=== PATIENT | female | born 1935 | race Caucasian/White ===

== ENCOUNTER 2018-07-12 06:41 | Inpatient (IN) | payer OTHER ==
[~2018-07-12] VITALS: Ht 177.8 cm; Wt 67.5 kg
[2018-07-12] VITALS (36 sets, daily range): BP systolic 72–152; BP diastolic 37–57
[~2018-07-12 06:41] MED LIST: CALCITRATE200 MG; CENTRUM SILVER1 EAC4 PO; COLACE100 MG PO; FLECAINIDE ACET50 M1 PO; KEFLEX500 M1 PO; LOPRESSOR25 PO; SIMVASTATIN10 MG PO; VITAMIN D3400 UNIT; ZOCOR20 MG PO
[2018-07-12 07:21] LABS: ABSOLUTE NEUTROPHILS 5.3 thou/uL (1.4-8.2); BASOPHILS 0.4 % (0.0-2.0); EOSINOPHILS 3.6 % (0.0-3.0); HEMATOCRIT 42.5 % (37.0-47.0); HEMOGLOBIN 14.2 gm/dL (12.0-15.0); LYMPHOCYTES 22.1 % (24.0-44.0); MCH 31.6 pg (26.0-34.0); MCHC 33.4 g/dL (28.0-37.0); MCV 94.6 fL (80.0-100.0); MONOCYTES 7.3 % (1.0-8.0); PLATELET COUNT 226 thou/uL (150-400); POLYS 66.6 % (36.0-66.0); RBC 4.49 mil/uL (4.20-5.00); RDW 13.7 % (10.5-14.5); WBC 7.9 thou/uL (4.0-11.0)
[2018-07-12 07:28] LABS: CALCIUM 9.1 mg/dL (8.5-10.1); CREATININE 1.4 mg/dL (0.6-1.0); POTASSIUM 4.4 mmol/L (3.5-5.1)
[2018-07-12] MEDS ORDERED: SUPER B COMPLE1 EAC2 PO (07:29)
[2018-07-12] MEDS ORDERED: FISH OIL 1,001000 M2 PO (07:29)
[2018-07-12] MEDS ORDERED: PRESERVISION A1 EAC2 PO (07:29)
[2018-07-12 07:33] LABS: APTT 30.3 Seconds (24.5-32.8); PROTIME 10.8 Seconds (9.3-11.4)
[2018-07-12 07:35] LABS: ALBUMIN 3.3 g/dL (3.4-5.0); TOTAL BILIRUBIN 0.7 mg/dL (<0.1-1.0); TOTAL PROTEIN 6.5 g/dL (6.4-8.2)
--- NOTE | 2018-07-12 15:15 | 2DMMODE ---
[address] [address] 2 D/M-MODE ECHOCARDIOGRAM Name: CRISTIANO SOTO Room #: 243-P ADM IN M.R.#: [id number] Admission: 07/12/18 Attend Phys: Osman Freed Discharge: Date of : 37 Date of Service: 07/12/18 1244 Report #: [id number] THIS REPORT FOR: //name// APPROVED REPORT Study performed: 07/12/2018 10:57:52 EXAM: Comprehensive 2D, Doppler, and color-flow Echocardiogram Patient Location: Lab Room #: 1 Status: stat BSA: 1.82 Other Information Study Quality: Limited Indications Pericardial Effusion Left Ventricle The left ventricle is normal size. The left ventricular systolic function is grossly normal. Right Ventricle The right ventricle is normal size. The right ventricular systolic function is normal. Atria The left atrium size is normal. The right atrium size is normal. Pericardium There is a moderate circumferential pericardial effusion. <Conclusion> Limited study. The left ventricle is normal size. The left ventricular systolic function is grossly normal. The right ventricle is normal size. The left atrium size is normal. [address] [address] 2 D/M-MODE ECHOCARDIOGRAM Name: CRISTIANO SOTO Room #: 243-P ADM IN M.R.#: [id number] Admission: 07/12/18 Attend Phys: Osman Freed Discharge: Date of : 37 Date of Service: 07/12/18 1244 Report #: [id number] The right atrium size is normal. There is a moderate circumferential pericardial effusion. <ELECTRONICALLY SIGNED> By: Gonzales Cole MD 07/12/18 1244 1244 43 Gonzales Cole MD /INF
[2018-07-12 15:36] LABS: ABSOLUTE NEUTROPHILS 14.9 thou/uL (1.4-8.2); BASOPHILS 0.1 % (0.0-2.0); EOSINOPHILS 0.4 % (0.0-3.0); HEMATOCRIT 37.2 % (37.0-47.0); HEMOGLOBIN 12.4 gm/dL (12.0-15.0); LYMPHOCYTES 4.5 % (24.0-44.0); MCH 31.5 pg (26.0-34.0); MCHC 33.4 g/dL (28.0-37.0); MCV 94.5 fL (80.0-100.0); MONOCYTES 7.9 % (1.0-8.0); PLATELET COUNT 184 thou/uL (150-400); POLYS 87.1 % (36.0-66.0); RBC 3.94 mil/uL (4.20-5.00); RDW 13.3 % (10.5-14.5); WBC 17.1 thou/uL (4.0-11.0)
[2018-07-13] VITALS (25 sets, daily range): BP systolic 88–145; BP diastolic 36–54
[2018-07-13 04:55] LABS: ABSOLUTE NEUTROPHILS 11.6 thou/uL (1.4-8.2); BASOPHILS 0.2 % (0.0-2.0); EOSINOPHILS 0.1 % (0.0-3.0); HEMATOCRIT 35.8 % (37.0-47.0); HEMOGLOBIN 12.1 gm/dL (12.0-15.0); LYMPHOCYTES 6.8 % (24.0-44.0); MCH 31.9 pg (26.0-34.0); MCHC 33.8 g/dL (28.0-37.0); MCV 94.5 fL (80.0-100.0); MONOCYTES 8.1 % (1.0-8.0); PLATELET COUNT 185 thou/uL (150-400); POLYS 84.8 % (36.0-66.0); RBC 3.79 mil/uL (4.20-5.00); RDW 13.5 % (10.5-14.5); WBC 13.7 thou/uL (4.0-11.0)
[2018-07-13 05:09] LABS: CREATININE 1.2 mg/dL (0.6-1.0); POTASSIUM 4.6 mmol/L (3.5-5.1)
--- NOTE | 2018-07-13 09:13 | EKG ---
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 07/13/1813 5 5 Luís Cotto MD, FACC /EPI
--- NOTE | 2018-07-13 16:10 | O ---
[facility] [place] [address] OPERATIVE REPORT Name: CRISTIANO SOOT Room #: 243-P ADM IN M.R.#: [id number] Admission: 07/12/18 Attend Phys: Osman Freed MD Discharge: Date of : 37 Report #: [id number] THIS REPORT FOR: //name// CC: Nadine Freed DATE OF SERVICE: 07/12/2018 PREOPERATIVE DIAGNOSIS: Pericardial effusion. POSTOPERATIVE DIAGNOSIS: Pericardial effusion. OPERATION: Emergency subxiphoid pericardiotomy. SURGEON: Neto Cervantes MD. ANESTHESIA: General. INDICATIONS: The patient is an 82-year-old who was having a procedure done in the electrophysiology laboratory. I was called emergently because they were concerned that there was a perforation with important pericardial effusion and potential cardiac tamponade. After attempts by Cardiology to place a pericardial drain failed, we asked Anesthesia to institute general anesthesia and then prepped and draped the patient. An incision was made over the xiphoid region. The costal margin was elevated and the anterior wall of the pericardium was cleared. An aperture was made into the anterior pericardium and blood under pressure was liberated. Blood pressure improved dramatically when the blood was drained. Digital exploration revealed no evidence of adhesions and blood. The blood loss was self-limited. Approximately 200 mL of blood was aspirated. A 24 Chuy drain was brought through a separate stab wound and drained in a dependent position. When hemostasis was satisfactory, the wound was closed in layers. The patient tolerated the procedure well and was taken to the Intensive Care Unit in good condition. All counts reported as correct. <ELECTRONICALLY SIGNED> By: Neto Cervantse MD 07/13/18 1610 [id number] Neto Cervantes MD /nt
[2018-07-14] VITALS (21 sets, daily range): BP systolic 100–166; BP diastolic 42–101
[2018-07-14 04:47] LABS: CALCIUM 7.7 mg/dL (8.5-10.1); CREATININE 1.4 mg/dL (0.6-1.0); POTASSIUM 4.8 mmol/L (3.5-5.1)
[2018-07-14 05:10] LABS: ABSOLUTE NEUTROPHILS 9.1 thou/uL (1.4-8.2); BASOPHILS 0.3 % (0.0-2.0); EOSINOPHILS 0.4 % (0.0-3.0); HEMATOCRIT 35.6 % (37.0-47.0); HEMOGLOBIN 11.8 gm/dL (12.0-15.0); LYMPHOCYTES 12.5 % (24.0-44.0); MCH 31.7 pg (26.0-34.0); MCHC 33.2 g/dL (28.0-37.0); MCV 95.4 fL (80.0-100.0); MONOCYTES 9.8 % (1.0-8.0); PLATELET COUNT 169 thou/uL (150-400); RBC 3.73 mil/uL (4.20-5.00); RDW 13.6 % (10.5-14.5); WBC 11.8 thou/uL (4.0-11.0)
[2018-07-15] VITALS (22 sets, daily range): BP systolic 130–172; BP diastolic 60–108
[2018-07-15 05:44] LABS: ABSOLUTE NEUTROPHILS 9.4 thou/uL (1.4-8.2); BASOPHILS 0.4 % (0.0-2.0); EOSINOPHILS 0.5 % (0.0-3.0); HEMATOCRIT 38.1 % (37.0-47.0); HEMOGLOBIN 12.6 gm/dL (12.0-15.0); LYMPHOCYTES 10.4 % (24.0-44.0); MCH 31.5 pg (26.0-34.0); MCHC 33.1 g/dL (28.0-37.0); MCV 95.4 fL (80.0-100.0); MONOCYTES 8.1 % (1.0-8.0); PLATELET COUNT 197 thou/uL (150-400); POLYS 80.6 % (36.0-66.0); RDW 13.8 % (10.5-14.5); WBC 11.7 thou/uL (4.0-11.0)
[2018-07-15 05:56] LABS: CALCIUM 7.7 mg/dL (8.5-10.1); CREATININE 1.1 mg/dL (0.6-1.0); POTASSIUM 4.5 mmol/L (3.5-5.1)
[2018-07-16] VITALS (7 sets, daily range): BP systolic 159–179; BP diastolic 59–78
[2018-07-16 04:08] LABS: ABSOLUTE NEUTROPHILS 9.4 thou/uL (1.4-8.2); BASOPHILS 0.4 % (0.0-2.0); HEMATOCRIT 35.4 % (37.0-47.0); HEMOGLOBIN 11.9 gm/dL (12.0-15.0); LYMPHOCYTES 10.8 % (24.0-44.0); MCHC 33.7 g/dL (28.0-37.0); MCV 94.8 fL (80.0-100.0); MONOCYTES 6.7 % (1.0-8.0); PLATELET COUNT 228 thou/uL (150-400); POLYS 81.1 % (36.0-66.0); RBC 3.74 mil/uL (4.20-5.00); RDW 13.5 % (10.5-14.5); WBC 11.6 thou/uL (4.0-11.0)
[2018-07-16 04:40] LABS: CREATININE 1.1 mg/dL (0.6-1.0); POTASSIUM 4.5 mmol/L (3.5-5.1)
--- NOTE | 2018-07-16 11:28 | 2DMMODE ---
[address] [address] 2 D/M-MODE ECHOCARDIOGRAM Name: BRITTANYCRISTIANO MCDANIELS Room #: 219-P ADM IN M.R.#: [id number] Admission: 07/12/18 Attend Phys: Osman Freed Discharge: Date of : 37 Date of Service: 07/16/18 1127 Report #: [id number] THIS REPORT FOR: //name// APPROVED REPORT Study performed: 07/16/2018 10:22:56 EXAM: Comprehensive 2D, Doppler, and color-flow Echocardiogram Patient Location: Bedside Room #: 219 Status: routine BSA: 1.84 HR: 61 bpm BP: 159/59 mmHg Rhythm: NSR Other Information Study Quality: Good Indications Cardiomyopathy R/O Effusion Left Ventricle The left ventricle is normal size. There is normal LV segmental wall motion. There is normal left ventricular wall thickness. Left ventricular systolic function is at the lower limits of normal LVEF is 45-50%. Right Ventricle The right ventricle is normal size. The right ventricular systolic function is normal. Atria Left atrium is at the upper limits of normal. Right atrium is at the upper limits of normal. Aortic Valve The aortic valve is mildly sclerotic Mitral Valve Mild mitral annular calcification Tricuspid Valve [address] [address] 2 D/M-MODE ECHOCARDIOGRAM Name: CRISTIANO SOTO Room #: 219-P ADM IN M.R.#: [id number] Admission: 07/12/18 Attend Phys: [facility] Discharge: Date of : 37 Date of Service: 07/16/18 1127 Report #: [id number] The tricuspid valve is normal in structure. Pulmonic Valve The pulmonary valve is normal in structure. Great Vessels The aortic root is normal in size. Pericardium There is no pericardial effusion. <Conclusion> Limited and abbreviated echocardiogram Left ventricular systolic function is at the lower limits of normal LVEF is 45-50%. The aortic valve is mildly sclerotic Mild mitral annular calcification There is no pericardial effusion. <ELECTRONICALLY SIGNED> By: Luís Cotto MD, FACC 07/16/187 26 Luís Cotto MD, FACC /INF
[2018-07-17 03:45] VITALS: BP 139/65
[2018-07-17 04:41] LABS: POTASSIUM 4.3 mmol/L (3.5-5.1)
[2018-07-17 04:43] LABS: ABSOLUTE NEUTROPHILS 9.7 thou/uL (1.4-8.2); BASOPHILS 0.3 % (0.0-2.0); EOSINOPHILS 0.6 % (0.0-3.0); HEMATOCRIT 35.5 % (37.0-47.0); HEMOGLOBIN 11.9 gm/dL (12.0-15.0); LYMPHOCYTES 9.4 % (24.0-44.0); MCH 31.6 pg (26.0-34.0); MCHC 33.5 g/dL (28.0-37.0); MCV 94.4 fL (80.0-100.0); MONOCYTES 10.3 % (1.0-8.0); PLATELET COUNT 249 thou/uL (150-400); POLYS 79.4 % (36.0-66.0); RBC 3.76 mil/uL (4.20-5.00); RDW 13.5 % (10.5-14.5); WBC 12.3 thou/uL (4.0-11.0)
--- NOTE | 2018-07-17 08:22 | EKG ---
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 : 1935 Requested By: Xi Hidalgo Order Number: [id number] MD: Luís Cotto Measurements Intervals [place] Rate: 105 P: 0 CT: 101 QRS: -81 QRSD: 146 T: 97 QT: 380 QTc: 503 Interpretive Statements Ventricular pacing No further analysis attempted due to paced rhythm Baseline wander in lead(s) II,III,aVR,aVF Compared to ECG 07/13/2018 08:06:31 Ventricular pacing is now present Electronically Signed On 07-17-2018 8:22:14 PLASMA PROCESSING CENTRIFUGE OPERATOR by Luís Cotto [email or web address] <ELECTRONICALLY SIGNED> By: Luís Cotto MD, [facility] 07/17/18 0822 [id number] Luís Cotto MD, [facility] /EPI
[2018-07-17 08:34] VITALS: BP 140/71
[2018-07-17 12:20] VITALS: BP 115/70
[2018-07-17 13:09] LABS: URINE BILIRUBIN NEGATIVE (Negative); URINE BLOOD TRACE (Negative); URINE CLARITY CLEAR; URINE COLOR YELLOW; URINE GLUCOSE-RANDOM* NEGATIVE (Negative); URINE KETONES 1+ (Negative); URINE LEUKOCYTES-REFLEX NEGATIVE (Negative); URINE NITRITE-REFLEX NEGATIVE (Negative); URINE PROTEIN (DIPSTICK) TRACE (Negative); URINE SPECIFIC GRAVITY >= 1.030 (1.005-1.035); URINE UROBILINOGEN 0.2 E.U./dl (0.2-1.0)
[2018-07-17 19:46] VITALS: BP 121/70
[2018-07-18 04:25] LABS: CALCIUM 8.2 mg/dL (8.5-10.1); CREATININE 1.2 mg/dL (0.6-1.0); POTASSIUM 4.2 mmol/L (3.5-5.1)
[2018-07-18 04:29] VITALS: BP 123/82
[2018-07-18 04:48] LABS: ABSOLUTE NEUTROPHILS 9.9 thou/uL (1.4-8.2); BASOPHILS 0.6 % (0.0-2.0); EOSINOPHILS 0.8 % (0.0-3.0); HEMATOCRIT 38.7 % (37.0-47.0); HEMOGLOBIN 12.7 gm/dL (12.0-15.0); LYMPHOCYTES 10.2 % (24.0-44.0); MCH 31.2 pg (26.0-34.0); MCHC 32.9 g/dL (28.0-37.0); MCV 94.8 fL (80.0-100.0); MONOCYTES 9.6 % (1.0-8.0); PLATELET COUNT 281 thou/uL (150-400); POLYS 78.8 % (36.0-66.0); RBC 4.09 mil/uL (4.20-5.00); RDW 13.4 % (10.5-14.5); WBC 12.5 thou/uL (4.0-11.0)
[2018-07-18 11:50] VITALS: BP 112/60
[2018-07-18 15:57] VITALS: BP 141/93
[2018-07-18 16:00] VITALS: BP 119/82
[2018-07-18 16:30] VITALS: BP 119/82
[2018-07-18 20:01] VITALS: BP 110/57
[2018-07-19 03:23] LABS: CREATININE 1.3 mg/dL (0.6-1.0); POTASSIUM 4.1 mmol/L (3.5-5.1)
[2018-07-19 04:12] LABS: ABSOLUTE NEUTROPHILS 9.4 thou/uL (1.4-8.2); BASOPHILS 0.3 % (0.0-2.0); EOSINOPHILS 2.4 % (0.0-3.0); HEMATOCRIT 37.7 % (37.0-47.0); HEMOGLOBIN 12.6 gm/dL (12.0-15.0); LYMPHOCYTES 11.9 % (24.0-44.0); MCH 31.6 pg (26.0-34.0); MCHC 33.3 g/dL (28.0-37.0); MCV 94.7 fL (80.0-100.0); MONOCYTES 7.8 % (1.0-8.0); PLATELET COUNT 297 thou/uL (150-400); POLYS 77.6 % (36.0-66.0); RBC 3.99 mil/uL (4.20-5.00); RDW 13.6 % (10.5-14.5); WBC 12.1 thou/uL (4.0-11.0)
[2018-07-19 04:51] VITALS: BP 137/71
[2018-07-19 08:23] VITALS: BP 123/62
[2018-07-19 12:00] VITALS: BP 117/60
[2018-07-19 13:25] VITALS: BP 119/82
[2018-07-19 16:00] VITALS: BP 122/56
[2018-07-19 19:34] VITALS: BP 130/64
[2018-07-20 04:57] VITALS: BP 150/82
[2018-07-20 08:13] VITALS: BP 149/68
--- NOTE | 2018-07-20 11:59 | 2DMMODE ---
[facility] [address] [place] [address] 2 D/M-MODE ECHOCARDIOGRAM Name: SOTOCRISTIANO ENEDELIA Room #: 219-P ADM IN M.R.#: [id number] Admission: 07/12/18 Attend Phys: Osman Freed Discharge: Date of : 37 Date of Service: 07/20/18 1159 Report #: [id number] THIS REPORT FOR: //name// APPROVED REPORT Study performed: 07/20/2018 10:39:53 EXAM: Comprehensive 2D, Doppler, and color-flow Echocardiogram Patient Location: Bedside Room #: 219 Status: routine BSA: 1.84 HR: 86 bpm BP: 149/68 mmHg Rhythm: Atrial Fibrillation Other Information Study Quality: Good Indications Atrial Fibrillation R/O Effusion 2D Dimensions LV Single Plane 4CH: 41.74 % LV Single Plane 2CH: 43.88 % Biplane EF: 41.6 % Volumes Left Atrial Volume (Systole) Single Plane 4CH: 84.05 mL Single Plane 2CH: 80.30 mL LA ESV Index: 49.00 mL/m2 Left Ventricle The left ventricle is normal size. Borderline concentric left ventricular hypertrophy. Left ventricular systolic function is mildly decreased. LVEF is 40-45%. Atria Left atrium is moderately dilated. Right atrium is mildly to moderately dilated. Aortic Valve The Aortic valve is sclerotic. Mitral Valve There is mitral annular calcification. [facility] [address] [place] [address] 2 D/M-MODE ECHOCARDIOGRAM Name: CRISTIANO SOTO Room #: 219-P ADM IN M.R.#: [id number] Admission: 07/12/18 Attend Phys: Osman Freed Discharge: Date of : 37 Date of Service: 07/20/18 1159 Report #: [id number] Tricuspid Valve The tricuspid valve is normal in structure. Pericardium There is no pericardial effusion. <Conclusion> The left ventricle is normal size. Left ventricular systolic function is mildly decreased. Left atrium is moderately dilated. Right atrium is mildly to moderately dilated. The Aortic valve is sclerotic. There is no pericardial effusion. <ELECTRONICALLY SIGNED> By: Gonzales Cole MD 07/20/18 1159 1159 1159 Gonzales Cole MD /INF
[2018-07-20] MEDS ORDERED: METOPROLOL SUCC50 MG PO (12:08)
[2018-07-20] MEDS ORDERED: PRADAXA150 MG PO (12:08)
[2018-07-20] MEDS ORDERED: PACERONE 200 M200 M1 PO (12:08)
[2018-07-20 12:25] VITALS: BP 119/82
== END 2018-07-20 13:49 | disposition home health service (06) | DRG 271 ==
LOC: CATH 06:41 → 2N 14:48 → ICU 14:48 → 2N 07-15 17:49 → ENTRNSPT 07-20 13:30 → EDTRNSPTSTS 07-20 13:32 → 2N 07-20 13:49
PROVIDERS: Nurse Practitioner; ADMIT Internal Medicine Cardiovascular Disease
PROC: 0W9D00Z Drainage of Pericardial Cavity with Drainage Device, Open Approach (ICD-10-PCS; principal; 2018-07-12)
PROC: 02583ZZ Destruction of Conduction Mechanism, Percutaneous Approach (ICD-10-PCS; 2018-07-12)
DX: I49.3 Ventricular premature depolarization (principal); I31.3 Pericardial effusion (noninflammatory); I97.190 Other postprocedural cardiac functional disturbances following cardiac surgery; D72.829 Elevated white blood cell count, unspecified; I42.8 Other cardiomyopathies; I48.91 Unspecified atrial fibrillation; Y83.8 Other surgical procedures as the cause of abnormal reaction of the patient, or of later complication, without mention of misadventure at the time of the procedure; Y92.238 Other place in hospital as the place of occurrence of the external cause; Z88.8 Allergy status to other drugs, medicaments and biological substances; Z79.899 Other long term (current) drug therapy
CPT/HCPCS: 10078; 10081; 50497; 50662; 51467; 56525; 56526; 62110; 62900; 70005